=== PATIENT | male | born 1965 | race Caucasian/White ===

== ENCOUNTER 2017-09-12 09:02 | Inpatient (IN) | payer OTHER ==
[~2017-09-12] VITALS: Ht 180.3 cm; Wt 90.4 kg
[~2017-09-12 09:02] MED LIST: ADULT LOW DOSE81 MG PO; ANALGESIC325 MG PO; ASPIRIN325 PO; CARDIZEM CD240 MG PO; CHONDROITIN SU250 MG PO; CIPROFLOXACIN500 M1 PO; ELIQUIS5 MG PO; FISH OIL 1,001000 MG PO; FISHOIL PO; GLUCOSAMINE HC500 MG PO; LOPRESSOR25 PO; MULTIVITAMIN W1 EAC5 PO; MULTIVITAMINS PO; PLAVIX 75 MG TA75 MG PO; TOPROL XL25 MG; VITAMIN B-1100 M1 PO; VITAMIN C100 M1 PO; VITAMIN D1000 UNI1 PO; VITAMIN D400 UNI1 PO; VITAMINC500 PO; ZOCOR40 MG PO; ZYRTEC10 MG PO; [UNRECOGNIZED DRUG - REMARK]
[2017-09-12 09:06] VITALS: BP 147/95
[2017-09-12] MEDS ORDERED: LISINOPRIL-HCT1 EAC2 PO (09:09)
[2017-09-12 10:36] LABS: ABSOLUTE BASOPHILS 0.1 thou/uL (0.0-0.2); ABSOLUTE EOSINOPHILS 0.4 thou/uL (0.0-0.7); ABSOLUTE LYMPHOCYTES 2.6 thou/uL (0.8-5.3); ABSOLUTE MONOCYTES 0.9 thou/uL (0.0-1.2); ABSOLUTE NEUTROPHILS 8.2 thou/uL (1.6-8.1); BASOPHILS 1.1 %; EOSINOPHILS 2.9 %; HEMATOCRIT 57.5 % (42.0-52.0); HEMOGLOBIN 19.6 gm/dL (14.0-18.0); LYMPHOCYTES 21.6 %; MCH 33.1 pg (26.0-34.0); MCV 97.2 fL (80.0-100.0); MONOCYTES 7.4 %; MPV 8.8 fl. (7.2-11.1); NUCLEATED RBCS 0 /100WBC; PLATELET COUNT* 235 thou/uL (150-400); RBC 5.92 mil/uL (4.50-6.00); RDW-CV 13.4 % (10.5-14.5); WBC 12.2 thou/uL (4.0-11.0)
[2017-09-12 10:44] LABS: ANION GAP 11 mmol/L (7-16); BUN 7 mg/dL (7-18); CALCIUM 9.7 mg/dL (8.5-10.1); CHLORIDE 98 mmol/L (98-107); CO2 28 mmol/L (21-32); CREATININE 0.9 mg/dL (0.6-1.3); GLUCOSE 102 mg/dL (70-99); POTASSIUM 3.9 mmol/L (3.5-5.1); SODIUM 137 mmol/L (136-145)
[2017-09-12 10:52] LABS: ALBUMIN 3.9 g/dL (3.4-5.0); ALKALINE PHOSPHATASE 97 U/L (46-116); LIPASE 202 U/L (73-393); SGOT 22 U/L (15-37); SGPT 34 U/L (30-65); TOTAL BILIRUBIN 0.5 mg/dL (<0.1-1.0); TOTAL PROTEIN 7.5 g/dL (6.4-8.2); TROPONIN-I LEVEL <0.06 ng/mL (<0.06)
[2017-09-12 11:04] LABS: APTT 29.1 Seconds (25.0-31.3); INR 1.1; PROTIME 10.4 Seconds (9.20-11.50)
[2017-09-12 12:44] VITALS: BP 152/83
[2017-09-12 12:55] VITALS: BP 145/77
--- NOTE | 2017-09-12 13:00 | NUR ---
RECEIVED REPORT FROM GEMA IN ER. PT TRANSFERED TO TELE FLOOR AT 1255, ASSUMED CARE. VSS. O2 SAT 97% ON ROOM AIR. PT A&O X4. STEEL RULE DIE MAKER PLACED TRACING SR. PT REPORTS FEELING OCCASIONAL PALPITATIONS. PT DENIES PAIN AT THIS TIME. ADMISISON ASSESSMENT, VITALS, HISTORY AND EDUCATION COMPLETED CHARTED. PT ORIENTED TO ROOM, BED, AND CALL LIGHT. PT INFORMED OF PLAN OF CARE. PT COMMUNICATES UNDERSTANDING. MEDS RECONCILLED. PT LOW FALL RISK. UP AD CARROL IN ROOM. GIRLFRIEND AT BEDSIDE. PT WAITING TO SEE CARDIOLOGY. LOW FALL RISK PRECAUTIONS ARE IN PLACE. CALL LIGHT IS WITHIN REACH. WILL CONTINUE TO MONITOR.
[2017-09-12 15:53] VITALS: BP 150/89
--- NOTE | 2017-09-12 16:31 | EKG ---
[place] [address] ELECTROCARDIOGRAM REPORT Name: JESUS ALBERTO ANDERSON Room: [address]R.#: [id number] Admission: 09/12/17 Attend Phys: Mateo Martinez MD Discharge: Date of : 61 Report #: [id number] THIS REPORT FOR: //name// [facility] ED Test Date: 2017-09-12 Test Time: 09:53:06 Pat Name: JESUS ALBERTO ANDERSON Department: Room: [facility] Gender: Automatic Glove Former: Bucky STEWART : 1965 Requested By: Cierra Rose Order Number: [id number] MD: Kiel De La Cruz Measurements Intervals [place] Rate: 69 P: 42 ID: 171 QRS: 31 QRSD: 100 T: 77 QT: 410 QTc: 440 Interpretive Statements Sinus rhythm Left atrial enlargement ST elev, probable normal early repol pattern Electronically Signed On 09-12-2017 16:31:17 SCREEDMAN/LABORER by Kiel De La Cruz [email or web address] <ELECTRONICALLY SIGNED> By: Kiel De La Cruz MD, [facility] 09/12/17 [id number] Kiel De La Cruz MD, FAC /EPI
--- NOTE | 2017-09-12 16:31 | EKG ---
[place] [address] ELECTROCARDIOGRAM REPORT Name: JESUS ALBERTO ANDERSON Room: [address]#: [id number] Admission: 09/12/17 Attend Phys: Mateo Martinez MD Discharge: Date of : 61 Report #: [id number] THIS REPORT FOR: //name// [facility] ED Test Date: 2017-09-12 Test Time: 09:07:11 Pat Name: JESUS ALBERTO ANDERSON Department: Room: [facility] Gender: M Diagnostic Cardiac Sonographer: : 1965 Requested By: Cierra Rose Order Number: [id number] MD: Kiel De La Cruz Measurements Intervals [place] Rate: 79 P: 48 [place]: 160 QRS: 42 QRSD: 102 T: 65 QT: 393 QTc: 451 Interpretive Statements Sinus rhythm Left atrial enlargement ST elev, probable normal early repol pattern Baseline wander in lead(s) II,III,aVF,V1 Compared to ECG 07/27/2017 09:59:24 No significant changes Electronically Signed On 09-12-2017 16:30:57 BATCH BLENDER by Kiel De La Cruz [email or web address] <ELECTRONICALLY SIGNED> By: Kiel De La Cruz MD, [facility] 09/12/17 1630 0907 0907 Kiel De La Cruz MD, [facility] /EPI
--- NOTE | 2017-09-12 16:54 | 2DMMODE ---
[place] [address] 2 D/M-MODE ECHOCARDIOGRAM Name: JESUS ALBERTO ANDERSON Room: [address] Christofer Vazquez#: [id number] Admission: 09/12/17 Attend Phys: Mateo Martinez, Discharge: Date of : 61 Date of Service: 09/12/17 1653 Report #: [id number] THIS REPORT FOR: //name// APPROVED REPORT Study performed: 09/12/2017 15:54:19 EXAM: Comprehensive 2D, Doppler, and color-flow Echocardiogram Patient Location: In-Patient Room #: [facility] Status: routine BSA: 2.10 HR: 74 bpm BP: 145/77 mmHg Rhythm: NSR Other Information Study Quality: Good Indications Atrial Fibrillation Palpitations Chest Pain 2D Dimensions LVEF(%): 67.12 (>50%) IVSd: 17.24 (7-11mm) LVOT Diam: 20.66 (18-24mm) LVDd: 47.19 mm PWd: 14.14 (7-11mm) Ascending Ao: 31.46 (22-36mm) LVDs: 29.64 (25-40mm) Aortic Root: 32.74 mm Kovacs's LVEF: 67.12 % Volumes Left Atrial Volume (Systole) LA ESV Index: 34.50 mL/m2 Aortic Valve AoV Peak Yang.: 1.61 m/s AO Peak Gr.: 10.33 mmHg LVOT Max P.47 mmHg AO Mean Gr.: 5.36 mmHg LVOT Mean P.47 mmHg LVOT Max V: 1.62 m/s AO V2 VTI: 29.85 cm LVOT Mean V: 0.95 m/s ELAN (VTI): 3.39 cm2 LVOT V1 VTI: 30.20 [place] [address] 2 D/M-MODE ECHOCARDIOGRAM Name: JESUS ALBERTO ANDERSON Room: [address] MZay#: [id number] Admission: 09/12/17 Attend Phys: Mateo Martinez, Discharge: Date of : 61 Date of Service: 09/12/17 1653 Report #: [id number] Mitral Valve E/A Ratio: 1.04 MV Decel. Time: 238.27 ms MV E Max Yang.: 0.60 m/s MV PHT: 69.10 ms MVA (PHT): 3.18 cm2 TDI E/Lateral E': 4.29 E/Medial E': 8.57 Medial E' Yang.: 0.07 m/s Lateral E' Yang.: 0.14 m/s Pulmonary Valve PV Peak Yang.: 1.03 m/s PV Peak Gr.: 4.27 mmHg Left Ventricle The left ventricle is normal size. There is normal LV segmental wall motion. Moderate concentric left ventricular hypertrophy. Left ventricular systolic function is normal. The left ventricular ejection fraction is within the normal range. LVEF is 60-65%. The left ventricular diastolic function is normal. Right Ventricle The right ventricle is normal size. The right ventricular systolic function is normal. Atria Left atrium is mildly dilated. The right atrium size is normal. Aortic Valve The aortic valve is normal in structure. No aortic regurgitation is present. There is no aortic valvular stenosis. Mitral Valve The mitral valve is normal in structure. Trace mitral regurgitation. No evidence of mitral valve stenosis. Tricuspid Valve The tricuspid valve is normal in structure. Trace tricuspid regurgitation. Pulmonic Valve The pulmonary valve is normal in structure. There is no pulmonic valvular [place] [address] 2 D/M-MODE ECHOCARDIOGRAM Name: JESUS ALBERTO ANDERSON [address]#: [id number] Admission: 09/12/17 Attend Phys: Mateo Martinez, Discharge: Date of : 61 Date of Service: 09/12/17 1653 Report #: [id number] Great Vessels The aortic root is normal in size. IVC is normal in size and collapses with >50% inspiration Pericardium There is no pericardial effusion. <Conclusion> Moderate concentric left ventricular hypertrophy. LVEF is 60-65%. Left atrium is mildly dilated. <ELECTRONICALLY SIGNED> By: Kiel De La Cruz MD, FACC 09/12/171652 52 52 Kiel De La Cruz MD, FACC /INF
--- NOTE | 2017-09-12 18:28 | NUR ---
VSS. O2 REMAINS >90% ON ROOM AIR. SANDAL PARTS ASSEMBLER REMAINS IN PLACE WITH NO CHANGES THIS SHIFT. PT DENIES PAIN OR DISCOMFORT. PT EATING AND DRINKING WITHOUT ISSUE. PT SPEAKING WITH FAMILY ON THE PHONE. PT STARTED ON SOTALOL. PT UP AD CARROL IN THE ROOM - PT STATES HE WILL CALL OUT IF HE FEELS UNSTEADY. PT PROGRESSING TOWARDS GOALS. LOW FALL RISK PRECAUTIONS IN PLACE. CALL LIGHT IS WITHIN REACH, HOURLY ROUNDING PERFORMED.
[2017-09-12 19:18] LABS: AMP/METHAMP Negative (Negative); BARBITURATES Negative (Negative); BENZODIAZEPINES Negative (Negative); COCAINE Negative (Negative); METHADONE Negative (Negative); OPIATES Negative (Negative); PCP Negative (Negative); THC Negative (Negative)
[2017-09-12 20:00] VITALS: BP 138/90
[2017-09-13] VITALS (7 sets, daily range): BP systolic 143–157; BP diastolic 77–101
[2017-09-13 05:31] LABS: CALCIUM 8.1 mg/dL (8.5-10.1); CREATININE 0.9 mg/dL (0.6-1.3); POTASSIUM 3.6 mmol/L (3.5-5.1)
[2017-09-13 05:34] LABS: HEMATOCRIT 50.7 % (42.0-52.0); MCH 33.5 pg (26.0-34.0); MCHC 34.4 g/dL (28.0-37.0); MCV 97.4 fL (80.0-100.0); MPV 8.7 fl. (7.2-11.1); NUCLEATED RBCS 0 /100WBC; PLATELET COUNT* 232 thou/uL (150-400); RBC 5.21 mil/uL (4.50-6.00); RDW-CV 13.2 % (10.5-14.5)
--- NOTE | 2017-09-13 05:38 | NUR ---
PT A/OX4, SR, RA, UP AD CARROL, ATIVAN GIVEN X1 FOR "FEELING OF HEART BEATING REAL HARD", REVIEWED LOCKER PLANT ATTENDANT WITH NO ACUTE CHAGNES NOTED, BANANA BAG INFUSING PER ORDERS, MEDS/ASSESSMENT PER ORDERS, HOURLY ROUNDING/FALL PRECAUTIONS IN PLACE, VSS, WILL CONT TO MONITOR.
[2017-09-13 05:49] LABS: HEMOGLOBIN 17.5 gm/dL (14.0-18.0)
[2017-09-13 06:58] LABS: ABSOLUTE LYMPHOCYTES 0.9 thou/uL (0.8-5.3); ABSOLUTE MONOCYTES 0.5 thou/uL (0.0-1.2); ABSOLUTE NEUTROPHILS 15.6 thou/uL (1.6-8.1); METAMYELOCYTES 1 %; PLATELET ESTIMATE ADEQUATE
--- NOTE | 2017-09-13 08:30 | NUR ---
RECEIVED REPORT. ASSUMED CARE OF PT AT 0730. VSS. PT A&O X4. O2 SAT 97% ON ROOM AIR. GRAIN ELEVATOR CLERK IN PLACE TRACING SR. AM ASSESSMENT AND VITALS COMPLETED CHARTED. IV PATENT AND INFUSING. PT REPORTS SLIGHT HEADACHE AT THIS TIME, STATES HE DOES NOT NEED MEDICATION FOR THE PAIN AT THIS TIME. PT INFORMED OF CARE PLAN - COMMUNICATES UNDERSTANDING. PT UP AD CARROL IN ROOM. PT EATING AND DRINKING WITHOUT ISSUE. PT EXHIBITING SLIGHT ANXIETY - CIWA 4. PT REFUSED NICOTENE PATCH THIS AM. LOW FALL RISK PRECAUTIONS IN PLACE. CALL LIGHT IS WITHIN REACH. WILL CONTINUE TO MONITOR.
--- NOTE | 2017-09-13 10:26 | EKG ---
[place] [address] ELECTROCARDIOGRAM REPORT Name: JESUS ALBERTO ANDERSON Room: [address] ADM IN .R.#: [id number] Admission: 09/13/17 Attend Phys: Mateo Martinez MD Discharge: Date of : 61 Report #: [id number] THIS REPORT FOR: //name// 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: : 1965 Requested By: Forest Miller Order Number: [id number] Sherif MD: Kiel De La Cruz Measurements Intervals [place] Rate: 62 P: 42 AR: 182 QRS: 35 QRSD: 104 T: 94 QT: 476 QTc: 484 Interpretive Statements Sinus rhythm Probable left ventricular hypertrophy Nonspecific T abnormalities, lateral leads ST elevation, consider repolarization Borderline prolonged QT interval Compared to ECG 09/12/2017 09:53:06 no change Electronically Signed On 09-13-2017 10:26:35 GRIEVANCE AND APPEALS COORDINATOR by Kiel De La Cruz [email or web address] <ELECTRONICALLY SIGNED> By: Kiel De La Cruz MD, [facility] 09/13/17 1026 0835 0835 Kiel De La Cruz MD, [facility] /EPI
[2017-09-13] MEDS ORDERED: SORINE 80 MG TA80 M1 PO (13:05)
[2017-09-13] MEDS ORDERED: AMBIEN 5 MG TABL5 M1 PO (13:05)
[2017-09-13] MEDS ORDERED: CHANTIX1 EACH PO (13:06)
--- NOTE | 2017-09-13 15:24 | NUR ---
INITIAL ASSESSMENT: Pt evaluated for d/c planning needs. Reviewed chart and spoke with nurse and pt. Pt is alert and oriented. Pt uses no DME and has not had home health. Pt is employed outside the home and independent. No d/c needs indicated.
--- NOTE | 2017-09-13 18:42 | NUR ---
VSS. O2 SAT REMAINS >90% ON ROOM AIR. PT A&O X4. PROJECT INTERN REMAINS IN PLACE WITH NO CHANGES THIS SHIFT. PT EATING AND DRINKING WITHOUT ISSUE. PT HAS CONTINUED TO REPORT HEADACHE THROUGHOUT THE SHIFT, THAT FINALLY RESOLVED AROUND 1700 THIS SHIFT AFTER ATIVAN AND ACETEMINOPHEN ADMINISTRATION. PT CIWA SCORES 0 NOW. PT UP AD CARROL IN ROOM. IV PATENT AND INFUSING. PT VISITED WITH SIGNIFICANT OTHER ON PHONE. PT REPOSITIONING SELF IN THE BED. PT PROGRESSING TOWARDS GOALS. LOW FALL RISK PRECAUTIONS IN PLACE. CALL LIGHT IS WITHIN REACH, HOURLY ROUNDING PERFORMED. WILL CONTINUE TO MONITOR FOR DURATION OF SHIFT.
[2017-09-14] VITALS (7 sets, daily range): BP systolic 136–179; BP diastolic 83–99
[2017-09-14 04:40] LABS: ABSOLUTE BASOPHILS 0.1 thou/uL (0.0-0.2); ABSOLUTE EOSINOPHILS 0.1 thou/uL (0.0-0.7); ABSOLUTE LYMPHOCYTES 3.2 thou/uL (0.8-5.3); ABSOLUTE MONOCYTES 1.1 thou/uL (0.0-1.2); ABSOLUTE NEUTROPHILS 8.8 thou/uL (1.6-8.1); BASOPHILS 0.7 %; EOSINOPHILS 0.7 %; HEMATOCRIT 48.6 % (42.0-52.0); HEMOGLOBIN 16.6 gm/dL (14.0-18.0); LYMPHOCYTES 23.8 %; MCH 33.7 pg (26.0-34.0); MCHC 34.2 g/dL (28.0-37.0); MCV 98.4 fL (80.0-100.0); MONOCYTES 8.6 %; MPV 8.3 fl. (7.2-11.1); NUCLEATED RBCS 0 /100WBC; PLATELET COUNT* 184 thou/uL (150-400); POLYS 66.2 %; RBC 4.94 mil/uL (4.50-6.00); RDW-CV 13.1 % (10.5-14.5); WBC 13.3 thou/uL (4.0-11.0)
[2017-09-14 05:10] LABS: ALBUMIN 2.9 g/dL (3.4-5.0); CALCIUM 7.5 mg/dL (8.5-10.1); CREATININE 0.7 mg/dL (0.6-1.3); POTASSIUM 3.4 mmol/L (3.5-5.1); TOTAL BILIRUBIN 0.2 mg/dL (<0.1-1.0); TOTAL PROTEIN 5.4 g/dL (6.4-8.2)
--- NOTE | 2017-09-14 05:26 | NUR ---
PT IS ABLE TO COMMUNICATE HIS NEEDS TO STAFF EFFECTIVELY. HE HAS DENIED THE NEED FOR PAIN MEDICATION UP TO THIS TIME. CURRENTLY ON SOTALOL TRIAL; FINISHING TODAY. POSSIBLE DISCHARGE TODAY.
--- NOTE | 2017-09-14 08:14 | NUR ---
PT RESTING IN BED, HAS YOUNG SON IN ROOM AT BEDSIDE. APPEARS ALERT O X 4, DENIES CHEST PAIN, SOB, PAIN OR DISCOMFORT, WANTS TO D/C TODAY
[2017-09-14] MEDS ORDERED: NICOTINE TRANSD21 M1 TRANSDERM (11:48)
[2017-09-14] MEDS ORDERED: TYLENOL325 MG PO (11:50)
--- NOTE | 2017-09-14 12:42 | EKG ---
[place] [address] ELECTROCARDIOGRAM REPORT Name: JESUS ALBERTO ANDERSON Room: [address] ADM IN .R.#: [id number] Admission: 09/13/17 Attend Phys: Mateo Martinez MD Discharge: Date of : 61 Report #: [id number] THIS REPORT FOR: //name// [facility] Test Date: 2017-09-14 Test Time: 03:53:56 Pat Name: JESUS ALBERTO ANDERSON Department: Room: [address] Gender: M Slip Operator: LIZ : 1965 Requested By: Forest Miller Order Number: [id number] Reading MD: Kiel De La Cruz Measurements Intervals [place] Rate: 68 P: 40 DC: 166 QRS: 43 QRSD: 104 T: 70 QT: 432 QTc: 460 Interpretive Statements Sinus rhythm Borderline T abnormalities, lateral leads Baseline wander in lead(s) III,aVF Compared to ECG 09/13/2017 08:35:04 T-wave abnormality still present Electronically Signed On 09-14-2017 12:41:56 ASSET MANAGER by Kiel De La Cruz [email or web address] <ELECTRONICALLY SIGNED> By: Kiel De La Cruz MD, FAC 09/14/17 1241 0353 0353 Kiel De La Cruz MD, [facility] /EPI
--- NOTE | 2017-09-16 08:34 | CON ---
[address] [address] CONSULTATION Name: JESUS ALBERTO ANDERSON Room: [address] IN .R.#: [id number] Admission: 09/13/17 Attend Phys: Mateo Martinez MD Discharge: 09/14/17 Date of : 61 Report #: [id number] THIS REPORT FOR: //name// CC: Mateo Christina INDICATION: Symptomatic PACs, PVCs and nonsustained ventricular tachycardia. HISTORY OF PRESENT ILLNESS: The patient is a very pleasant 51-year-old gentleman with history of paroxysmal atrial fibrillation and coronary artery disease. The patient has been maintaining sinus rhythm for the most part on diltiazem. Over the last week, he has been having more episodes of palpitations lasting up to several minutes at a time. On telemetry here, he was noted to have some nonsustained ventricular tachycardia as well as PACs. He does have a history of coronary artery disease with previous percutaneous coronary intervention to the left anterior descending coronary artery in 2009. He is not having any chest discomfort to suggest angina at this time. His initial cardiac enzymes are unremarkable. PAST MEDICAL HISTORY: 1. Paroxysmal atrial fibrillation. 2. Coronary artery disease. 3. Bronchitis. 4. Hypertension. 5. Gastritis. 6. History of gastrointestinal bleeding. 7. History of hematuria. 8. Hyperlipidemia. 9. Tobacco use. PAST SURGICAL HISTORY: Cardiac catheterization with percutaneous coronary intervention to the LAD. FAMILY HISTORY: The patient's father had a heart attack in his late 50s. The patient's mother had a heart attack in her 70s. SOCIAL HISTORY: The patient is . 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. He drinks a moderate amount of beer daily and smokes a pack of cigarettes daily. REVIEW OF SYSTEMS: A 14-point review of systems is positive for history of blood in the stool 2 years ago. Palpitations as outlined above. Otherwise unremarkable. PHYSICAL EXAMINATION: VITAL SIGNS: Stable. Blood pressure 145/77 and pulse 77 [place] [address] CONSULTATION Name: JESUS ALBERTO ANDERSON Room: [address]#: [id number] Admission: 09/13/17 Attend Phys: Mateo Martinez MD Discharge: 09/14/17 Date of : 61 Report #: [id number] GENERAL: This is a healthy pleasant-appearing gentleman in no distress. Mood and affect appropriate. HEENT: Extraocular muscles intact. Mucous membranes are moist. NECK: Examination of the neck shows no jugular venous distention. There are no carotid bruits. CHEST: Examination of the chest reveals clear lung guevara without wheezes, rales or rhonchi. CARDIOVASCULAR: Reveals a regular rhythm with normal S1 and S2. I do not appreciate gallop or murmur. ABDOMEN: Examination of the abdomen reveals normal bowel sounds. The abdomen is soft and nontender. EXTREMITIES: Examination of the extremities shows no edema. Peripheral pulses are palpable. SKIN: Warm and dry. IMPRESSION AND RECOMMENDATIONS: 1. Paroxysmal atrial fibrillation with recurrent palpitations. At this point in time, I would like to start sotalol 80 mg twice daily. We will discontinue diltiazem. Continue Eliquis 5 mg b.i.d. 2. Hypertension. Continue lisinopril/hydrochlorothiazide one tablet daily. We will follow and make additional changes as needed for adequate control of blood pressure. 3. Tobacco use, smoking cessation discussed and advised. 4. Coronary artery disease, presently stable. He is not on aspirin as he is on Eliquis. He is not having any symptoms to suggest angina. We will follow clinically. <ELECTRONICALLY SIGNED> By: Forest Miller MD, FACC 09/16/17 0834 1459 [id number] Miller MD, FACC /nt
== END 2017-09-14 12:56 | disposition home or self-care (01) | DRG 310 ==
LOC: M.ERS 09:02 → M.TBA-ER 11:44 → M.2W 12:58
PROVIDERS: Internal Medicine Hematology & Oncology; Personal Emergency Response Attendant; ADMIT Internal Medicine
DX: I47.1 Supraventricular tachycardia (principal); I48.0 Paroxysmal atrial fibrillation; I73.00 Raynaud's syndrome without gangrene; F17.210 Nicotine dependence, cigarettes, uncomplicated; I25.10 Atherosclerotic heart disease of native coronary artery without angina pectoris; I10 Essential (primary) hypertension; E78.5 Hyperlipidemia, unspecified; F10.20 Alcohol dependence, uncomplicated; E86.0 Dehydration; D75.1 Secondary polycythemia; Z79.899 Other long term (current) drug therapy; I25.2 Old myocardial infarction; Z95.5 Presence of coronary angioplasty implant and graft; Z71.6 Tobacco abuse counseling; Z82.49 Family history of ischemic heart disease and other diseases of the circulatory system

== ENCOUNTER → 2017-10-07 | Outpatient (CLI) | payer OTHER ==
[~2017-10-07] MED LIST changes: +AMBIEN 5 MG TABL5 M1 PO; +CHANTIX1 EACH PO; +LISINOPRIL-HCT1 EAC2 PO; +NICOTINE TRANSD21 M1 TRANSDERM; +SORINE 80 MG TA80 M1 PO; +TYLENOL325 MG PO
== END ==
LOC: M.ULTRA 15:44
DX: D75.1 Secondary polycythemia (principal); N28.1 Cyst of kidney, acquired

== ENCOUNTER 2019-09-26 14:31 | Emergency (ER) | payer OTHER ==
[~2019-09-26] VITALS: Ht 180.3 cm; Wt 90.7 kg
[2019-09-26] MEDS ORDERED: VITAMIN D310 MC1 PO (14:48)
[2019-09-26] MEDS ORDERED: CARVEDILOL12.5 MG PO (14:48)
[2019-09-26 16:03] VITALS: BP 150/90
== END 2019-09-26 16:03 | disposition home or self-care (01) ==
LOC: M.ERS 14:31
DX: S01.01XA Laceration without foreign body of scalp, initial encounter (principal); I25.2 Old myocardial infarction; I48.91 Unspecified atrial fibrillation; F17.210 Nicotine dependence, cigarettes, uncomplicated; Z98.890 Other specified postprocedural states; W18.39XA Other fall on same level, initial encounter; Y92.89 Other specified places as the place of occurrence of the external cause; Y93.89 Activity, other specified; Y99.8 Other external cause status